=== PATIENT | male | born 1980 | race Two or more races ===

== ENCOUNTER 2020-12-11 10:52 | Emergency (ER) | payer OTHER ==
[~2020-12-11] VITALS: Ht 185.4 cm; Wt 113.4 kg
[2020-12-11 11:00] VITALS: BP 132/81
== END 2020-12-11 13:56 | disposition home or self-care (01) ==
LOC: ER 10:52
DX: S16.1XXA Strain of muscle, fascia and tendon at neck level, initial encounter (principal); M25.561 Pain in right knee; V49.9XXA Car occupant (driver) (passenger) injured in unspecified traffic accident, initial encounter; Y93.89 Activity, other specified; Y92.89 Other specified places as the place of occurrence of the external cause; Y99.8 Other external cause status
CPT/HCPCS: 72040; 73562

== ENCOUNTER 2022-06-30 01:43 | Inpatient (IN) | payer MEDICAID, OTHER ==
[~2022-06-30] VITALS: Ht 188 cm; Wt 157.5 kg
[2022-06-30 02:28] LABS: Basophils # (auto) 0.1 10 ^3/uL (0-0.2); Basophils % (auto) 0.9 % (0.0-2.0); Eosinophils # (auto) 0.3 10 ^3/uL (0-0.8); Eosinophils % (auto) 2.3 % (0.0-7.0); Hematocrit 46.3 % (41.0-53.0); Hemoglobin 15.7 g/dL (13.5-17.5); Lymphocytes # (auto) 3.3 10 ^3/uL (0.4-5.4); Lymphocytes % (auto) 28.7 % (10.0-50.0); Mean Corpuscular Volume 85.2 fL (80.0-100.0); Monocytes # (auto) 0.7 10 ^3/uL (0-1.3); Monocytes % (auto) 5.7 % (0.0-12.0); Neutrophils # (auto) 7.2 10 ^3/uL (1.6-8.6); Neutrophils % (auto) 62.4 % (37.0-80.0); Nucleated Red Blood Cells % 0.1 %; Red Blood Cells 5.44 10^6/uL (4.5-5.90); Red Cell Distribution Width 13.1 % (11.8-14.3); White Blood Cell 11.5 10^3/uL (4.4-10.8)
[2022-06-30 02:40] LABS: Albumin 3.4 g/dL (3.4-5.0); BUN/Creatinine Ratio 19.1; Calcium 8.7 mg/dL (8.5-10.1); Magnesium 2.2 mg/dL (1.6-2.6)
[2022-06-30 02:43] LABS: Bilirubin, Total 0.7 mg/dL (0.2-1.0); Total Protein 7.4 g/dL (6.4-8.2)
[2022-06-30] MEDS ORDERED: IOHEXOL 350 MG/ML 100ML IJ ONE (03:40)
[2022-06-30] MEDS ORDERED: HEPARIN DRIP/D5W 100UNITS/ML 250 ML IV SCH (05:00)
[2022-06-30] MEDS ORDERED: HEPARIN SODIUM (PORCINE) 5000 UNITS/ML 1ML VIAL IV ONE ×2 (05:00→21:45)
[2022-06-30 05:03] LABS: INR 1.04 (0.9-1.15); Partial Thromboplastin Time 31.6 sec (24.6-33.4)
[2022-06-30] MEDS ORDERED: TEMAZEPAM 15 MG CAP PO PRN (06:15)
[2022-06-30] MEDS ORDERED: SOD CHL 0.45% 1,000 ML IV SCH (06:15)
[2022-06-30] MEDS ORDERED: MORPHINE SULFATE INJ 2 MG/ml SYRG IV PRN (06:15)
[2022-06-30] MEDS ORDERED: ONDANSETRON HCL 4 MG/2 ML VIAL IV PRN (06:15)
[2022-06-30] MEDS ORDERED: DOCUSATE SOD 100 MG CAP PO PRN (06:15)
[2022-06-30] MEDS ORDERED: HYDROcodone-ACET 5/325MG TAB PO PRN (06:15)
[2022-06-30] MEDS ORDERED: ACETAMINOPHEN 325 MG TAB PO PRN (06:15)
[2022-06-30] MEDS ORDERED: MAALOX PLUS or MAALOX 30 ML PO PRN (06:15)
[2022-06-30] MEDS ORDERED: HYDROmorphone HCL 2 MG/ML VL/or syr IV PRN (06:15)
[2022-06-30] MEDS ORDERED: LORazepam 0.5 MG TAB PO PRN (06:15)
[2022-06-30] MEDS ORDERED: ENOXAPARIN SOD 150 MG/1 ML SYRINGE SC SCH (10:00)
[2022-06-30 10:44] LABS: Alcohol, Urine < 3.0 mg/dL (0-10); Amphetamine Screen, Urine NEGATIVE (NEGATIVE); Barbiturate Scree,Urine NEGATIVE (NEGATIVE); Benzodiazephine Screen, Urine NEGATIVE (NEGATIVE); Cannabinoid Screen, Urine NEGATIVE (NEGATIVE); Cocaine Screen, Urine NEGATIVE (NEGATIVE); Opiate Scree,Urine NEGATIVE (NEGATIVE); Phencyclidine Screen, Urine NEGATIVE (NEGATIVE)
[2022-06-30 22:59] LABS: Basophils # (auto) 0.1 10 ^3/uL (0-0.2); Basophils % (auto) 0.8 % (0.0-2.0); Eosinophils # (auto) 0 10 ^3/uL (0-0.8); Eosinophils % (auto) 0.4 % (0.0-7.0); Hematocrit 43.3 % (41.0-53.0); Hemoglobin 14.7 g/dL (13.5-17.5); Lymphocytes # (auto) 2.9 10 ^3/uL (0.4-5.4); Lymphocytes % (auto) 24.9 % (10.0-50.0); Mean Corpuscular Hemoglobin 29.1 pg (28.0-32.0); Mean Corpuscular Hgb Conc. 33.9 g/dL (32.0-36.0); Mean Corpuscular Volume 85.8 fL (80.0-100.0); Monocytes # (auto) 0.7 10 ^3/uL (0-1.3); Monocytes % (auto) 5.7 % (0.0-12.0); Neutrophils # (auto) 7.9 10 ^3/uL (1.6-8.6); Neutrophils % (auto) 68.2 % (37.0-80.0); Nucleated Red Blood Cells % 0.1 %; Red Blood Cells 5.05 10^6/uL (4.5-5.90); White Blood Cell 11.5 10^3/uL (4.4-10.8)
[2022-06-30 23:04] LABS: INR 1.06 (0.9-1.15); Partial Thromboplastin Time 31.3 sec (24.6-33.4)
[2022-07-01] VITALS (18 sets, daily range): BP systolic 98–126; BP diastolic 63–94
[2022-07-01] MEDS: HEPARIN DRIP/D5W 100UNITS/ML 250 ML IV SCH ×2 (00:03→12:32)
[2022-07-01 06:16] LABS: Basophils # (auto) 0.1 10 ^3/uL (0-0.2); Basophils % (auto) 0.7 % (0.0-2.0); Eosinophils # (auto) 0.1 10 ^3/uL (0-0.8); Eosinophils % (auto) 0.5 % (0.0-7.0); Hematocrit 41.7 % (41.0-53.0); Hemoglobin 13.7 g/dL (13.5-17.5); Lymphocytes # (auto) 3.3 10 ^3/uL (0.4-5.4); Lymphocytes % (auto) 27.7 % (10.0-50.0); Mean Corpuscular Hemoglobin 28.2 pg (28.0-32.0); Mean Corpuscular Hgb Conc. 32.9 g/dL (32.0-36.0); Mean Corpuscular Volume 85.8 fL (80.0-100.0); Monocytes # (auto) 0.7 10 ^3/uL (0-1.3); Monocytes % (auto) 5.6 % (0.0-12.0); Neutrophils # (auto) 7.7 10 ^3/uL (1.6-8.6); Neutrophils % (auto) 65.5 % (37.0-80.0); Nucleated Red Blood Cells % 0.1 %; Red Blood Cells 4.86 10^6/uL (4.5-5.90); Red Cell Distribution Width 13.1 % (11.8-14.3); White Blood Cell 11.7 10^3/uL (4.4-10.8)
[2022-07-01 06:28] LABS: BUN/Creatinine Ratio 14.7; Calcium 8.4 mg/dL (8.5-10.1); Potassium 4.4 mmol/L (3.5-5.1)
[2022-07-01 07:35] LABS: INR 1.13 (0.9-1.15); Partial Thromboplastin Time 64.3 sec (24.6-33.4)
[2022-07-01 11:07] LABS: Cholesterol 153 mg/dL (< 200); Triglycerides 170 mg/dL (< 150)
[2022-07-01 11:09] LABS: HDL Cholesterol 28 mg/dL (40-59); LDL Cholesterol 108 mg/dL (< 100)
[2022-07-01] MEDS ORDERED: IODIXANOL 320MG/ML 100ML BTL IV ONE ×3 (13:23→15:15)
[2022-07-01] MEDS ORDERED: LIDOCAINE 2%HCL (LOCAL ANESTH.) INJ 10ml MDV ONE (13:23)
[2022-07-01] MEDS ORDERED: SODIUM CHL 0.9% 50 ML ONE ×2 (13:37→14:44)
[2022-07-01] MEDS ORDERED: fentaNYL CITRATE 100 MCG/2 ML VL ONE (13:37)
[2022-07-01] MEDS ORDERED: MIDAZOLAM HCL 2MG/2ML 2ml VIAL (1mg/ml) ONE ×2 (13:37→14:44)
[2022-07-01] MEDS ORDERED: ANGIOMAX 250 MG VIAL IV ONE ×2 (13:37→14:44)
[2022-07-01] MEDS ORDERED: ATROPINE SULF 1 MG/10ml SYR ONE (14:26)
[2022-07-01] MEDS ORDERED: EPINEPHrine HCL 1 MG/10 ML SYRG ONE (14:28)
[2022-07-01 15:32] LABS: INR 1.13 (0.9-1.15); Partial Thromboplastin Time 59.6 sec (24.6-33.4)
[2022-07-01] MEDS: ENOXAPARIN SOD 150 MG/1 ML SYRINGE SC SCH (17:02)
[2022-07-02] VITALS (32 sets, daily range): BP systolic 89–140; BP diastolic 55–102
[2022-07-02 04:31] LABS: Calcium 7.9 mg/dL (8.5-10.1); Potassium 3.6 mmol/L (3.5-5.1)
[2022-07-02 04:35] LABS: BUN/Creatinine Ratio 19.2
[2022-07-02] MEDS: ENOXAPARIN SOD 150 MG/1 ML SYRINGE SC SCH (05:24)
[2022-07-02 08:18] LABS: Basophils # (auto) 0.1 10 ^3/uL (0-0.2); Basophils % (auto) 1.3 % (0.0-2.0); Eosinophils # (auto) 0.1 10 ^3/uL (0-0.8); Eosinophils % (auto) 1.2 % (0.0-7.0); Hematocrit 38.2 % (41.0-53.0); Lymphocytes % (auto) 22.9 % (10.0-50.0); Mean Corpuscular Hemoglobin 29.3 pg (28.0-32.0); Mean Corpuscular Hgb Conc. 34.1 g/dL (32.0-36.0); Mean Corpuscular Volume 85.9 fL (80.0-100.0); Monocytes # (auto) 0.5 10 ^3/uL (0-1.3); Monocytes % (auto) 6.2 % (0.0-12.0); Neutrophils % (auto) 68.4 % (37.0-80.0); Nucleated Red Blood Cells % 0.1 %; Red Blood Cells 4.45 10^6/uL (4.5-5.90); Red Cell Distribution Width 12.9 % (11.8-14.3); White Blood Cell 8.8 10^3/uL (4.4-10.8)
[2022-07-02] MEDS: APIXABAN 5 MG TAB PO SCH ×2 (09:40→21:45)
[2022-07-03] VITALS (18 sets, daily range): BP systolic 98–133; BP diastolic 29–95
[2022-07-03 04:12] LABS: Basophils # (auto) 0 10 ^3/uL (0-0.2); Basophils % (auto) 0.4 % (0.0-2.0); Eosinophils # (auto) 0.1 10 ^3/uL (0-0.8); Eosinophils % (auto) 1.1 % (0.0-7.0); Hematocrit 39.5 % (41.0-53.0); Hemoglobin 13.2 g/dL (13.5-17.5); Lymphocytes # (auto) 1.9 10 ^3/uL (0.4-5.4); Lymphocytes % (auto) 20.2 % (10.0-50.0); Mean Corpuscular Hemoglobin 29.1 pg (28.0-32.0); Mean Corpuscular Hgb Conc. 33.5 g/dL (32.0-36.0); Mean Corpuscular Volume 86.8 fL (80.0-100.0); Monocytes # (auto) 0.6 10 ^3/uL (0-1.3); Monocytes % (auto) 6.8 % (0.0-12.0); Neutrophils # (auto) 6.7 10 ^3/uL (1.6-8.6); Neutrophils % (auto) 71.5 % (37.0-80.0); Nucleated Red Blood Cells % 0.1 %; Red Blood Cells 4.55 10^6/uL (4.5-5.90); Red Cell Distribution Width 12.9 % (11.8-14.3); White Blood Cell 9.4 10^3/uL (4.4-10.8)
[2022-07-03 04:21] LABS: Potassium 4.2 mmol/L (3.5-5.1)
[2022-07-03 04:23] LABS: BUN/Creatinine Ratio 17.5
[2022-07-03] MEDS: APIXABAN 5 MG TAB PO SCH (10:17)
[2022-07-03] MEDS ORDERED: APIX5TAB PO (13:23)
== END 2022-07-03 17:44 | disposition home or self-care (01) | DRG 134 ==
LOC: ER 01:43 → OVERFLOW 06:05 → ICU WEST 07-01 18:09
PROVIDERS: ADMIT Hospitalist; ATTEND Student in an Organized Health Care Education/Training Program
PROC: 02CR3ZZ Extirpation of Matter from Left Pulmonary Artery, Percutaneous Approach (ICD-10-PCS; principal; 2022-07-01)
DX: I26.92 Saddle embolus of pulmonary artery without acute cor pulmonale (principal); I21.A1 Myocardial infarction type 2; I27.20 Pulmonary hypertension, unspecified; I51.3 Intracardiac thrombosis, not elsewhere classified; E66.01 Morbid (severe) obesity due to excess calories; I82.402 Acute embolism and thrombosis of unspecified deep veins of left lower extremity; R73.03 Prediabetes; Z20.822 Contact with and (suspected) exposure to COVID-19; Z79.01 Long term (current) use of anticoagulants; Z68.42 Body mass index [BMI] 45.0-49.9, adult
CPT/HCPCS: 33915; 36415; 36600; 71045; 71275; 80048; 80053; 80061; 80307; 81241; 82805; 83036; 83735; 83880; 84443; 84484; 85025; 85379; 85610; 85730; 87081; 87426; 87804; 93005; 93306; 93970; 96361; 96365; 96372; 96375; 99152; 99153; 99291; G0378; J2001; J2250; Q9967